=== PATIENT | female | born 1970 | race African-American/Black ===

== ENCOUNTER 2016-12-16 07:19 | Outpatient (CLI) | payer OTHER ==
[2016-03-28 12:39] VITALS: BP 163/100
[2016-12-16 08:07] LABS: BASOPHILS % 0.8 (0.0-1.5); EOSINOPHILS % 2.6 % (0.0-6.8); MEAN CORPUSCULAR HEMOGLOBIN 29.8 pg (28.0-34.0); MEAN CORPUSCULAR VOLUME 92.6 fl (80.0-100.0); MONOCYTES % 4.4 % (0.0-11.0); NEUTROPHILS # 6.1 # k/uL (1.4-7.7)
[2016-12-16 08:18] LABS: eGFR (African) > 60; eGFR (Non-African) > 60
--- NOTE | 2016-12-17 06:46 | Diagnostic Imaging Report ---
WOLF JUAREZ~ [facility] [address] [facility] [address] [address] ~ ~ ~ ~ Report Submission Date: Dec 16, 2016 7:55:24 AM CDT Patient ~ Study Name: ERICA TALBOT ~ Date: Dec 16, 2016 7:37:29 AM CDT ~ Modality Type: CR Gender: F ~ Description: CHEST : 70 ~ Institution: [facility] Physician: WOLF JUAREZ ~ ~ ~ ~ Examination: PA and lateral chest. History: Evaluate lung parekh. Findings: PA lateral chest demonstrate a normal cardiac and mediastinal silhouette. No focal infiltrate.~ No effusion.~ No blunting of the costophrenic margins.~ Osseous structures are appropriate for age. Impression: No acute process. ~ Electronically signed on Dec 16, 2016 7:55:24 AM CDT by: Mike SAEZ
== END 2016-12-16 07:20 ==
LOC: RAD 07:19
PROVIDERS: ATTEND Physician Assistant
DX: R06.02 Shortness of breath (principal); Z83.42 Family history of familial hypercholesterolemia
CPT/HCPCS: 36415; 71020; 80053; 80061; 83880; 85025

== ENCOUNTER 2016-12-21 09:30 | Outpatient (CLI) | payer OTHER ==
[2016-03-28 12:39] VITALS: BP 163/100
[2016-12-21] MEDS ORDERED: ALBUTEROL SULFATE 2.5 MG/3 ML AMPUL.NEB NEB ONE (09:50)
== END 2016-12-21 09:32 ==
LOC: RT 09:30
PROVIDERS: ATTEND Physician Assistant
DX: R06.02 Shortness of breath (principal); J45.909 Unspecified asthma, uncomplicated
CPT/HCPCS: 94060

== ENCOUNTER 2017-01-25 10:05 | Emergency (ER) | payer OTHER ==
[2017-01-25] MEDS ORDERED: IPRATROPIUM/ALBUTEROL SULFATE 3 ML AMPUL.NEB NEB ONE (10:06)
[2017-01-25] MEDS: IPRATROPIUM/ALBUTEROL SULFATE 3 ML AMPUL.NEB NEB ONE (10:21)
--- NOTE | 2017-01-25 10:22 | ED Physician Documentation ---
Dyspnea - HISTORIAN Historian: patient - HPI Stated Complaint: short of breath Chief Complaint: Dyspnea Additional Information: lost her nebulizer, was at clinic getting refiil prescription and decided she didn't want to wait for a treatment so she came to ER. Now breathing fine after duoneb treatment. Onset: minutes Duration: continues in ED, gone now Initiating Event: out of meds Severity: mild Exacerbated By: nothing Associated Symptoms: none Further Comments: no - ROS CONST: no problems EYES/ENT: none GI/: none NEURO/PSYCH: denies: headache MS/SKIN/LYMPH: none - PAST HX Lung Disease: asthma, COPD Cardiac Disease: CHF PE Risk Factors: hypertension Surgeries/Procedures: none Other History: none Allergies/Adverse Reactions: Allergies Allergy/AdvReac Type Severity Reaction Status Date / Time lisinopril Allergy Unknown Anaphylaxis Verified 01/25/17 10:18 Home Medications: Ambulatory Orders Medication Instructions Recorded Omeprazole 20 mg PO DAILY 05/12/15 amLODIPine BESYLATE [Norvasc] 10 mg PO DAILY 02/17/16 Cyclobenzaprine HCl [Flexeril] 10 mg PO HS #10 tablet 03/28/16 Naproxen [Naprosyn] 500 mg PO Q12H #20 tablet 03/28/16 Albuterol Ihaler 90 mcg IH 4 hours 12/15/16 Albuterol Sulfate 2.5 mg IH QID 12/15/16 Hydrochlorothiazide [Hydrodiuril] 12.5 mg PO DAILY u2 12/15/16 Ipratropium Garvin 0.2 mg IH QID 12/15/16 - SOCIAL HX Smoking History: cigarettes Alcohol Use: none Drug Use: none - FAMILY HX Family History: none - VITAL SIGNS Vital Signs: Vital Signs Temp Pulse Resp BP Pulse Ox 68 18 163/114 99 01/25/17 10:05 01/25/17 10:05 01/25/17 10:05 01/25/17 10:05 - REVIEWED ASSESSMENTS Nursing Assessment Reviewed: Yes Vitals Reviewed: Yes Progress - Results/Orders Results/Orders: no wheeze after duoneb ED Results Lab/Radiology - Orders Orders: ED Orders Category Date Time Status Ipratropium/Albuterol Sulfate [Duoneb] Med 01/25/17 10:06 Discontinued 3 ml NEB .STK-MED ONE Ipratropium/Albuterol Sulfate [Duoneb] Med 01/25/17 10:20 Once 3 ml NEB NOW ONE Dyspnea Physical Exam - EXAM General Appearance: no acute distress, alert EENT: eye inspection normal, ENT inspection normal, pharynx normal, no signs of dehydration Neck: nml inspection Respiratory: no resp. distress, no pain on inspiration, speaks full sentences, wheezes CVS: reg. rate & rhythm, no murmur Abdomen: non-tender Skin: color nml, no rash Extremities: non-tender Neuro/Psych: oriented x3 Discharge Clincal Impression: Asthma attack Referrals: Oliver Alvarez PA [Primary Care Provider] - 2 Days Home Medications: Ambulatory Orders Omeprazole 20 mg PO DAILY 05/12/15 amLODIPine BESYLATE [Norvasc] 10 mg PO DAILY 02/17/16 Cyclobenzaprine HCl [Flexeril] 10 mg PO HS #10 tablet 03/28/16 Naproxen [Naprosyn] 500 mg PO Q12H #20 tablet 03/28/16 Albuterol Ihaler 90 mcg IH 4 hours 12/15/16 Albuterol Sulfate 2.5 mg IH QID 12/15/16 Hydrochlorothiazide [Hydrodiuril] 12.5 mg PO DAILY u2 12/15/16 Ipratropium Garvin 0.2 mg IH QID 12/15/16 Condition: Good Disposition: 01 HOME, SELF-CARE Decision to Admit: NO Date of Decison to Admit: 01/25/17 Decision Time: 10:24
[2017-01-25 10:34] VITALS: BP 140/97
== END 2017-01-25 10:32 | disposition home or self-care (01) ==
LOC: ED 10:05
DX: J45.909 Unspecified asthma, uncomplicated (principal)
CPT/HCPCS: 99283

== ENCOUNTER 2017-02-26 13:43 | Outpatient (CLI) | payer OTHER ==
--- NOTE | 2017-02-26 15:46 | Diagnostic Imaging Report ---
WOLF JUAREZ [facility] [address] [facility] [address] [address] Report Submission Date: Feb 26, 2017 2:22:32 PM CDT Patient Study Name: ERICA TALBOT Date: Feb 26, 2017 1:44:54 PM CDT Modality Type: CR Gender: F Description: UPPER EXTREMITY : 70 Institution: [facility] Physician: WOLF JUAREZ Examination: Plain film wrist History: Wrist discomfort Comparison exams: None available Findings: 3 views the wrist demonstrate normal cortical margins. No fracture. No dislocation. Early degenerative changes 1st carpometacarpal articulation. No soft tissue abnormality. Impression: Wall the Early degenerative changes. No acute osseous abnormality Electronically signed on Feb 26, 2017 2:22:32 PM CDT by: Mike SAEZ
== END 2017-02-26 13:44 ==
LOC: RAD 13:43
PROVIDERS: ATTEND Physician Assistant
DX: M25.532 Pain in left wrist (principal)
CPT/HCPCS: 73110

== ENCOUNTER 2017-03-08 16:16 | Outpatient (CLI) | payer OTHER | END 2017-03-08 16:17 | LOC: LABRHC 16:16 | PROVIDERS: ATTEND Physician Assistant | DX: N39.0 Urinary tract infection, site not specified (principal) | CPT/HCPCS: 87086 ==

== ENCOUNTER 2017-03-11 12:32 | Outpatient (CLI) | payer OTHER ==
--- NOTE | 2017-03-11 14:26 | Diagnostic Imaging Report ---
WOLF JUAREZ [facility] [address] [facility].[address] [address] Report Submission Date: Mar 11, 2017 1:16:16 PM CDT Patient Study Name: ERICA TALBOT Date: Mar 11, 2017 12:52:35 PM CDT Modality Type: US Gender: F Description: UNILAT LTD STDY EXT VEINS : 70 Institution: [facility] Physician: WOLF JUAREZ Examination: Ultrasound vein History: Leg discomfort Findings: Sonographic evaluation of the left lower extremity venous system from the groin to the popliteal fossa inclusive. Normal compressibility. No luminal filling defect. Normal waveforms and response to augmentation. No popliteal region fluid collection. Impression: No evidence for deep venous thrombosis. Electronically signed on Mar 11, 2017 1:16:16 PM CDT by: Mike SAEZ
== END 2017-03-11 12:33 ==
LOC: RAD 12:32
PROVIDERS: ATTEND Physician Assistant
DX: M79.604 Pain in right leg (principal)
CPT/HCPCS: 93971

== ENCOUNTER 2017-10-13 10:36 | Outpatient (CLI) | payer OTHER ==
[2017-10-13 10:55] LABS: BASOPHILS % 0.4 (0.0-1.5); MEAN CORPUSCULAR HEMOGLOBIN 29.5 pg (28.0-34.0); MEAN CORPUSCULAR VOLUME 94.3 fl (80.0-100.0); MONOCYTES % 3.8 % (0.0-11.0); NEUTROPHILS # 6.1 # k/uL (1.4-7.7)
[2017-10-13 11:18] LABS: eGFR (African) > 60; eGFR (Non-African) > 60
== END 2017-10-13 10:38 ==
LOC: LAB 10:36
PROVIDERS: ATTEND Physician Assistant
DX: I10 Essential (primary) hypertension (principal); Z00.00 Encounter for general adult medical examination without abnormal findings
CPT/HCPCS: 36415; 80053; 80061; 85025

== ENCOUNTER 2017-11-09 10:16 | Emergency (ER) | payer OTHER ==
--- NOTE | 2017-11-09 10:51 | ED Physician Documentation ---
Abdominal Pain - HISTORIAN Historian: patient - HPI Stated Complaint: Abdominal cramping x2 days Chief Complaint: Abdominal Pain Additonal Information: 46 yo female who developed some abd cramping, nauseated and vomited 3 times, has had some diarrhea also. No fever or chills. Has had some bright red bleed in stools, does have some hemorrhoids. No one else ill at home. Onset: days ago (2 days) Duration: constant, waxing, waning Timing: still present Context: denies: out of country travel, bad food Severity: moderate Quality: cramping Associated Symptoms: nausea, vomiting, diarrhea, bloody stools (mild), loss of appetite. denies: fever, chills, coffee ground emesis, bloody emesis Exacerbated by: nothing Relieved by: nothing - ROS CONST: no problems GI/: other (hemorrhoids) CVS/RESP: none MS/SKIN/LYMPH: none - SOCIAL HX Smoking History: less than 1 pack/day (3-4) Alcohol Use: occasionally Drug Use: none - FAMILY HX Family History: no significant history - PAST HX Past History: none Ischemic Bowel Risk Factors: none Surgeries/Procedures: none Immunizations: referred to PCP Allergies/Adverse Reactions: Allergies Allergy/AdvReac Type Severity Reaction Status Date / Time lisinopril Allergy Unknown Anaphylaxis Verified 11/09/17 10:38 - VITAL SIGNS Vital Signs: Vital Signs Temp Pulse Resp BP Pulse Ox 98.3 F 81 16 171/107 99 11/09/17 10:16 11/09/17 10:16 11/09/17 10:16 11/09/17 10:16 11/09/17 10:16 - REVIEWED ASSESSMENTS Nursing Assessment Reviewed: Yes Vitals Reviewed: Yes Progress - Progress Progress: 11:56 Still complains of some abd cramping and bloating ED Results Lab/Radiology - Lab Results Lab Results: Lab Results 11/09/17 11/09/17 11/09/17 11:30 11:30 11:30 WBC 8.80 K/ul K/ul (4.00-12.00) RBC 4.52 M/ul M/ul (3.90-5.20) Hgb 13.4 g/dL g/dL (12.0-16.0) Hct 42.5 % % (34.5-46.5) MCV 93.9 fl fl (80.0-100.0) MCH 29.7 pg pg (28.0-34.0) MCHC 31.6 g/dL g/dL (30.0-36.0) RDW 13.8 % % (11.3-14.3) Plt Count 366 K/mm3 K/mm3 (130-400) Neut % (Auto) 68.5 % % (39.0-79.0) Lymph % (Auto) 24.5 % % (16.0-50.0) [place] % (Auto) 2.9 % % (0.0-11.0) Eos % (Auto) 2.2 % % (0.0-6.8) Baso % (Auto) 0.3 (0.0-1.5) Neut # (Auto) 6.0 # k/uL # k/uL (1.4-7.7) Lymph # (Auto) 2.2 # k/uL # k/uL (0.6-4.0) [place] # (Auto) 0.2 # k/uL # k/uL (0.0-0.9) Eos # (Auto) 0.2 # k/uL # k/uL (0.0-0.6) Baso # (Auto) 0.0 # k/uL # k/uL (0.0-0.5) Reactive Lymphs % 1.5 % % (0.0-5.0) Reactive Lymphs # 0.1 # k/uL # k/uL (0.0-0.8) Sodium 140 mmol/L mmol/L (136-145) Potassium 3.8 mmol/L mmol/L (3.5-5.1) Chloride 106 mmol/L mmol/L (98-107) Carbon Dioxide 25 mmol/L mmol/L (22-30) BUN 14 mg/dL mg/dL (7-17) Creatinine 1.00 mg/dL mg/dL (0.52-1.04) Estimated Creat Clear 120 Est GFR ( Amer) > 60 (60 - ) Est GFR (Non-Af Amer) > 60 (60 - ) Glucose 105 mg/dL mg/dL (74-106) Calcium 9.7 mg/dL mg/dL (8.4-10.2) Total Bilirubin 0.1 mg/dL L mg/dL (0.2-1.3) AST 18 U/L U/L (15-46) ALT 23 U/L U/L (13-69) Alkaline Phosphatase 82 U/L U/L (38-126) Total Protein 7.5 g/dL g/dL (6.3-8.2) Albumin 4.0 g/dL g/dL (3.5-5.0) Lipase 71 U/L U/L (23-300) - Orders Orders: ED Orders Category Date Time Status ABD SERIES PA CHEST [RAD] Stat Exams 11/09/[address] ABD & PELVIS W/ CON Stat Exams 11/09/17 Stop Req CBC/PLATELET/DIFF Routine Lab 11/09/17 11:30 Completed CMP Routine Lab 11/09/17 11:30 Completed LIPASE Stat Lab 11/09/17 11:30 Completed URINALYSIS Routine Lab 11/09/17 Ordered Abdominal Pain Physical Exam - Physical Exam General Appearance: alert, mild distress EENT: eye inspection normal, ENT inspection normal NECK: normal inspection, thyroid normal, supple. No: lymphadenopathy RESPIRATORY: no resp distress, chest non-tender, breath sounds normal. No: wheezes, rales, rhonchi CVS: reg rate & rhythm, heart sounds normal, equal pulses, no murmur ABDOMEN: soft, no organomegaly, normal bowel sounds, no distension, tenderness ( mild diffuse in all quadrants). No: rebound, guarding BACK: normal inspection, no CVA tenderness SKIN: warm/dry, normal color NEURO: oriented X3, mood/affect nml, cognition normal Vital Signs: Vital Signs Temp Pulse Resp BP Pulse Ox 98.3 F 81 16 171/107 99 11/09/17 10:16 11/09/17 10:16 11/09/17 10:16 11/09/17 10:16 11/09/17 10:16 Discharge Clincal Impression: Constipation Referrals: Oliver Alvarez PA [Primary Care Provider] - 2 Days Additional Instructions: Take some Milk of Magnesia, 2 tablespoons to see if that will help with constipation and cramping feeling. You need to have your blood pressure recheck. Make sure you take you medications as directed. If you continue to have proboems to see Chi Alvarez for possible CT scan that you refused to have done today. Condition: Stable Disposition: 01 HOME, SELF-CARE Decision to Admit: NO Date of Decison to Admit: 11/09/17 Decision Time: 12:39
[2017-11-09 11:32] LABS: BASOPHILS % 0.3 (0.0-1.5); EOSINOPHILS % 2.2 % (0.0-6.8); MEAN CORPUSCULAR HEMOGLOBIN 29.7 pg (28.0-34.0); MEAN CORPUSCULAR VOLUME 93.9 fl (80.0-100.0); MONOCYTES % 2.9 % (0.0-11.0)
[2017-11-09 11:47] LABS: eGFR (African) > 60; eGFR (Non-African) > 60
--- NOTE | 2017-11-09 13:09 | Diagnostic Imaging Report ---
GIANFRANCO DAHL [facility] [address] [facility].[address] [address] Report Submission Date: November 09, 2017 11:28:36 AM CDT Patient Study Name: ERICA TALBOT Date: November 09, 2017 11:01:00 AM CDT Modality Type: DX Gender: F Description: ABDOMEN : 70 Institution: [facility] Physician: GIANFRANCO DAHL Examination: Abdomen History: GENERALIZED ABDOMINAL PAIN/N/V X 2 DAYS (Hx) Findings: 3 views obtained of the chest and abdomen. No abnormal dilation of the large or small bowel. Air and stool throughout the large bowel. No suspicious calcification projecting over the renal fossa or the lower pelvic region. Pelvic phleboliths. Osseous structures are appropriate for age. Single view the chest without focal infiltrative process. No blunting of the costophrenic margins. Impression: Moderate large bowel stool. No obstruction. No parenchymal infiltrate/effusion. No suspicious calcifications by plain film sensitivity. Electronically signed on November 09, 2017 11:28:36 AM CDT by: Mike SAEZ
[2017-11-09 13:15] LABS: APPEARANCE,URINE CLOUDY (CLEAR); COLOR,URINE YELLOW (YELLOW)
[2017-11-09 13:16] LABS: OCCULT BLOOD,URINE 1+ (NEGATIVE); UROBILINOGEN URINE 0.2 Eu (0.2-1.0)
[2017-11-09 13:20] VITALS: BP 140/97
== END 2017-11-09 12:55 | disposition home or self-care (01) ==
LOC: ED 10:16
DX: K59.00 Constipation, unspecified (principal)
CPT/HCPCS: 74022; 80053; 81002; 83690; 85025; 87086; 87186; 99284

== ENCOUNTER 2017-11-23 15:22 | Outpatient (CLI) | payer OTHER ==
--- NOTE | 2017-11-23 18:57 | Diagnostic Imaging Report ---
WOLF JUAREZ [facility] [address] [facility].[address] [address] Report Submission Date: Nov 23, 2017 5:58:55 PM CDT Patient Study Name: ERICA TALBOT Date: Nov 23, 2017 3:37:17 PM CDT Modality Type: US Gender: F Description: : 70 Institution: [facility] Physician: WOLF JUAREZ Ultrasound lower extremity venous duplex History: Fell off the couch 3 weeks ago with swelling in the calf Duplex and color flow imaging was performed through the left lower extremity femoropopliteal venous system revealing normal compressibility and normal augmentation from the common femoral vein to the popliteal vein. The calf veins are not well visualized. Ultrasound for the area of pain at the lateral left calf reveals no abnormalities. Impression: No evidence for deep venous thrombosis. The calf veins are not well visualized. No abnormalities are identified in the area of pain at the left lateral calf. Electronically signed on Nov 23, 2017 5:58:55 PM CDT by: Yana SAEZ
== END 2017-11-23 15:23 ==
LOC: RAD 15:22
PROVIDERS: ATTEND Physician Assistant
DX: M79.605 Pain in left leg (principal)
CPT/HCPCS: 93971

== ENCOUNTER 2018-02-18 18:52 | Emergency (ER) | payer OTHER ==
--- NOTE | 2018-02-18 19:25 | ED Physician Documentation ---
General Adult - HISTORIAN Historian: patient - HPI Stated Complaint: doesn't feel well Chief Complaint: General Adult Additional Information: Scratching a lottery ticket after supper when she thought her throat was getting tight and it was hard to swallow. Occurred 30 minutes earlier. Says she feels better now, but wanted to know if she was getting sick or if her throat was about to close. Had a previous allergic reaction to lisinopril 9 years ago. Denies new foods or exposures this evening. She has had a bit of a LUU for two days and her voice is scratchy. Thinks all of her symptoms may be her allergies. No fever, no drooling. No benadryl or other treatment attempted. No other modifying factors or associated signs. - ROS CONST: no problems - PAST HX Past History: other (seasonal alergies) Allergies/Adverse Reactions: Allergies Allergy/AdvReac Type Severity Reaction Status Date / Time lisinopril Allergy Unknown Anaphylaxis Verified 02/18/18 19:07 - SOCIAL HX Smoking History: cigarettes - FAMILY HX Family History: No - VITAL SIGNS Vital Signs: Vital Signs Temp Pulse Resp BP Pulse Ox 140/97 11/09/17 13:18 - REVIEWED ASSESSMENTS Nursing Assessment Reviewed: Yes Vitals Reviewed: Yes General Adult Physical Exam - PHYSICAL EXAM GENERAL APPEARANCE: mild distress (anxious) EENT: eye inspection normal, ENT inspection normal, pharynx normal (hypertrophied cryptic tonsils), other (no pain with palpation facial sinus areas). No: pharyngeal erythema NECK: normal inspection, supple RESPIRATORY: no resp distress, breath sounds normal CVS: reg rate & rhythm, heart sounds normal, no murmur BACK: normal inspection SKIN: warm/dry, normal color EXTREMITIES: normal range of motion (gait and stance), no evidence of injury NEURO: CN's nml as tested, motor nml, sensation nml, cognition normal Discharge Clincal Impression: Seasonal allergies Referrals: Primary Doctor,No [Primary Care Provider] - 2 Days Condition: Good Disposition: 01 HOME, SELF-CARE Decision to Admit: NO Decision Time: 19:28
[2018-02-18] MEDS ORDERED: MORPHINE SULFATE 10 MG/ML CARTRIDGE IVP ONE (19:46)
[2018-02-18 20:20] VITALS: BP 179/122
== END 2018-02-18 19:25 | disposition home or self-care (01) ==
LOC: ED 18:52
DX: J30.2 Other seasonal allergic rhinitis (principal)
CPT/HCPCS: 99282

== ENCOUNTER 2018-03-03 15:06 | Outpatient (CLI) | payer OTHER | END 2018-03-03 15:07 | LOC: LAB 15:06 | PROVIDERS: ATTEND Family Medicine | DX: L65.9 Nonscarring hair loss, unspecified (principal) | CPT/HCPCS: 36415; 84443 ==

== ENCOUNTER 2018-04-04 15:27 | Outpatient (CLI) | payer OTHER | END 2018-04-04 15:30 | LOC: LAB 15:27 | PROVIDERS: ATTEND Family Medicine | DX: Z11.3 Encounter for screening for infections with a predominantly sexual mode of transmission (principal) | CPT/HCPCS: 36415; 86703; 86803; 87491; 87591 ==

== ENCOUNTER 2018-04-04 16:15 | Outpatient (CLI) | payer OTHER | END 2018-04-04 16:16 | LOC: LABRHC 16:15 | PROVIDERS: ATTEND Family Medicine | DX: Z53.9 Procedure and treatment not carried out, unspecified reason (principal) ==

== ENCOUNTER 2018-10-03 11:44 | Emergency (ER) | payer OTHER ==
--- NOTE | 2018-10-03 12:00 | ED Physician Documentation ---
General Adult - HPI Stated Complaint: dental pain Chief Complaint: General Adult Additional Information: Patient presents to ED with a 2 day history of left lower dental pain. She states she has been taking Ibuprofen 400mg every 3 hours for her dental pain. Today she began to have epigastric pain. Patient admits to GERD and take Prilosec, however, has not been taking her medication due to her dental pain. She may have had a bowel movement that was dark red in nature. Onset: days ago (2) Timing: still present Severity: mild - ROS CONST: no problems EYES/ENT: none CVS/RESP: cough GI/: denies: vomiting, nausea MS/SKIN/LYMPH: none NEURO/PSYCH: denies: headache - PAST HX Past History: none Other History: none Surgeries/Procedures: none Allergies/Adverse Reactions: Allergies Allergy/AdvReac Type Severity Reaction Status Date / Time lisinopril Allergy Unknown Anaphylaxis Verified 02/18/18 19:07 Home Medications: Ambulatory Orders Medication Instructions Recorded Penicillin V Potassium [Pen V K] 500 mg PO TID #30 tablet 10/03/18 - SOCIAL HX Smoking History: non-smoker Alcohol Use: none Drug Use: none - FAMILY HX Family History: No - VITAL SIGNS Vital Signs: Vital Signs Temp Pulse Resp BP Pulse Ox 179/122 02/18/18 19:22 - REVIEWED ASSESSMENTS Nursing Assessment Reviewed: Yes Vitals Reviewed: Yes General Adult Physical Exam - PHYSICAL EXAM GENERAL APPEARANCE: no distress EENT: ROSE NECK: supple RESPIRATORY: no resp distress, chest non-tender, breath sounds normal CVS: reg rate & rhythm, heart sounds normal ABDOMEN: soft, tenderness (epigastric) BACK: no CVA tenderness SKIN: warm/dry EXTREMITIES: non-tender NEURO: oriented X3, motor nml Discharge Clincal Impression: Dental abscess UTI (urinary tract infection) Qualifiers: Urinary tract infection type: acute cystitis Hematuria presence: without hematuria Qualified Code(s): N30.00 - Acute cystitis without hematuria Prescriptions: Penicillin V Potassium [Pen V K] 500 mg PO TID #30 tablet Referrals: Meron Ghotra MD [Primary Care Provider] - 2 Days Additional Instructions: 1. Stop taking Ibuprofen. Use tylenol instead 2. Drink plenty of fluids to maintain proper hydration. Avoid Caffeine and alcohol 3. Take antibiotics until gone 4. Follow up with dentist as soon as possible 5. Follow up with PCP within 1 week 6. Return to ER for new or worsening symptoms Condition: Stable Decision to Admit: NO Date of Decison to Admit: 10/03/18 Decision Time: 13:16
[2018-10-03 12:46] LABS: APPEARANCE,URINE CLOUDY (CLEAR); COLOR,URINE YELLOW (YELLOW); OCCULT BLOOD,URINE 2+ (NEGATIVE); UROBILINOGEN URINE 0.2 Eu (0.2-1.0)
[2018-10-03 12:53] LABS: EOSINOPHILS % 1.4 % (0.0-6.8); MONOCYTES % 5.4 % (0.0-11.0); NEUTROPHILS # 8.6 # k/uL (1.4-7.7)
[2018-10-03 13:06] LABS: eGFR (Non-African) > 60
[2018-10-03 13:35] VITALS: BP 150/120
== END 2018-10-03 13:31 ==
LOC: ED 11:44
DX: K04.7 Periapical abscess without sinus (principal); N30.00 Acute cystitis without hematuria
CPT/HCPCS: 36415; 80053; 81002; 83690; 85025; 87086; 99283

== ENCOUNTER 2018-10-11 13:44 | Outpatient (CLI) | payer OTHER ==
[2018-10-11 14:22] LABS: MEAN CORPUSCULAR HEMOGLOBIN 29.6 pg (28.0-34.0)
[2018-10-11 14:30] LABS: eGFR (Non-African) > 60
== END 2018-10-11 13:46 ==
LOC: LAB 13:44
PROVIDERS: ATTEND Family Medicine
DX: I10 Essential (primary) hypertension (principal); K92.1 Melena
CPT/HCPCS: 36415; 80048; 85027

== ENCOUNTER 2019-03-08 14:31 | Outpatient (CLI) | payer OTHER ==
[2018-10-18 10:50] VITALS: BP 175/110
[2019-03-08 15:06] LABS: BASOPHILS % 0.7 % (0.0-1.5); NEUTROPHILS # 6.5 # k/uL (1.4-7.7); SEGMENTED NEUTROPHILS % 64 % (39-79)
[2019-03-08 16:06] LABS: eGFR (Non-African) > 60
[2019-03-08 16:07] LABS: A1C 5.6 % (<5.7)
== END 2019-03-08 14:33 ==
LOC: LAB 14:31
PROVIDERS: ATTEND Family Medicine
DX: R20.0 Anesthesia of skin (principal); R73.9 Hyperglycemia, unspecified
CPT/HCPCS: 36415; 80053; 82607; 82746; 83036; 85025; 88148; G0143

== ENCOUNTER 2019-05-27 16:24 | Emergency (ER) | payer OTHER ==
[2019-05-27] MEDS ORDERED: ORPHENADRINE CITRATE 60 MG/2 ML ML IM ONE (16:43)
[2019-05-27] MEDS ORDERED: KETOROLAC TROMETHAMINE 60 MG/2 ML VIAL IM ONE (16:43)
--- NOTE | 2019-05-27 16:43 | ED Physician Documentation ---
Headache - HISTORIAN Historian: patient - HPI Stated Complaint: c/o headache and dizziness Chief Complaint: Headache Additional Information: Patient presents to ED with a 12 hour history of left occipital headache with dizziness. Patient states it started last night, however, went away when she went to bed. This morning is began again. She normally does not have headache. Patient was worried she was having a stroke so she came to the ER. She has HTN, presenting blood pressure 179/105. Patient also complains of some neck and shoulder pain. Onset: hours (12) Timing: intermittent episodes Exposure To: none Severity: moderate Quality: sharp Associated Symptoms: light-headedness. denies: problems with vision, sensitivity to light, nausea, vomiting Preceding Symptoms: denies: visual disturbance - ROS NEURO/PSYCH: denies: confusion, anxiety EYES/ENT: denies: difficulty swallowing CVS/RESP: denies: chest pain, shortness of breath GI/: denies: abdominal pain MS/SKIN/LYMPH: denies: muscle aches - PAST HX Medical History: CVA, hypertension Surgical History: noncontributory Allergies/Adverse Reactions: Allergies Allergy/AdvReac Type Severity Reaction Status Date / Time lisinopril Allergy Unknown Anaphylaxis Verified 05/27/19 16:41 - SOCIAL HX Smoking History: cigarettes, less than 1 pack/day Alcohol Use: none Drug Use: none - Family HX Family History: none - VITAL SIGNS Vital Signs: Vital Signs Temp Pulse Resp BP Pulse Ox 97.8 F 88 18 179/100 98 05/27/19 16:36 05/27/19 16:36 05/27/19 16:36 05/27/19 16:36 05/27/19 16:36 - REVIEWED ASSESSMENTS Nursing Assessment Reviewed: Yes Vitals Reviewed: Yes ED Results Lab/Radiology - Radiology Radiology Impressions: Report Submission Date: May 27, 2019 5:22:15 PM INTER COM SERVICER Patient Study Name: ERICA DIAZ Date: May 27, 2019 4:45:00 PM INTER COM SERVICER Modality Type: CT\SR Gender: F Description: CT BRAIN W/O CONTRAST : 70 Institution: [facility] Physician: PAVITHRA BRODY CT brain noncontrast. Date of study: May 27, 2019 CLINICAL HISTORY: Order states: headache Pt states: LUU w/hx of HTN, dizziness, LUU to back lt side of head, no trauma, starting last night. Prior CT Head w/o done 06/10/2016 (Hx) / ITS.REASON headache Note time : 05/27/2019 5:15:15 PM User : Lucy Saeed Order states: headache Pt states: LUU w/hx of HTN, dizziness, LUU to back lt side of head, no trauma, starting last night. Prior CT Head w/o done 06/10/2016 (DICOM Hx) TECHNIQUE: 3 mm contiguous axial images of the brain, noncontrast with sagittal and coronal reconstructions. FINDINGS: There is no evidence of intracranial mass effect, hemorrhage, or acute infarct. The lateral ventricles are symmetrical and the 4th ventricle is midline without shift. No acute brain parenchymal changes or extra-axial fluid collections are identified. The posterior fossa contents are within normal limits. The calvarium is intact. The visualized sinuses and mastoid air cells are clear. IMPRESSION: No acute intracranial process. Electronically signed on May 27, 2019 5:22:15 PM INTER COM SERVICER by: Andre Willett - Orders Orders: ED Orders Category Date Time Status CT BRAIN W/O CONTRAST Stat Exams 05/27/19 Completed Ketorolac Tromethamine [Toradol] Med 05/27/19 16:43 Discontinued 60 mg IM NOW ONE Orphenadrine Citrate [Norflex] Med 05/27/19 16:43 Discontinued 60 mg IM NOW ONE hydrALAZINE HCL [Apresoline] Med 05/27/19 17:05 Discontinued 25 mg PO ONCE ONE Headache Physical Exam - EXAM General Appearance: no acute distress, alert EENT: eyes nml inspection, PERRL Neck: supple Respiratory: no resp distress, chest non-tender, breath sounds normal CVS: reg. rate & rhythm, heart sounds nml Abdomen: non-tender, nml bowel sounds Skin: color nml, no rash Extremitites: non-tender, normal range of motion, no edema - NEURO/PSYCH Higher Functions: alert, oriented x3, nml speech, mood/affect nml Cranial: nml as tested, no evidence of acute CVA Cerebellar: nml as tested Sensorimotor: motor nml, sensation nml Discharge Clincal Impression: Accelerated essential hypertension Headache Qualifiers: Headache type: other headache syndrome Qualified Code(s): G44.89 - Other headache syndrome Referrals: Meron Ghotra MD [Primary Care Provider] - 2 Days Additional Instructions: 1. Keep blood pressure log. Measure blood pressure twice a day. Once in the morning, once in the evening. Write the readings down. 2. Tylenol 650mg every 4 hours as needed for pain. Norflex every 12 hours as needed for muscle tension 3. Resume home medications including Amlodipine 3. Follow up with PCP within 1 week. Take your blood pressure log with you to discuss. 4. Return to ER for new or worsening symptoms Condition: Stable Disposition: 01 HOME, SELF-CARE Decision to Admit: NO Date of Decison to Admit: 05/27/19 Decision Time: 18:09
[2019-05-27] MEDS ORDERED: hydrALAZINE HCL 25 MG TABLET PO ONE (17:05)
--- NOTE | 2019-05-27 17:26 | Diagnostic Imaging Report ---
PATIENT MR#: [id number] PATIENT PATIENT NAME: ERICA Mejia DATE OF : 1970 REFERRING PHYSICIAN: Mirella Jacobs EXAM DATE: 05/27/2019 ACCESSION NUMBER: [id number] EXAM DESCRIPTION: CT BRAIN W/O CONTRAST CT brain noncontrast. Date of study: May 27, 2019 CLINICAL HISTORY: Order states: headache Pt states: LUU w/hx of HTN, dizziness, LUU to back lt side of head, no trauma, Note time : 05/27/2019 5:15:15 PM User : Lucy Saeed Order states: headache Pt states: LUU w/hx of HTN, dizziness, LUU to back lt side of head, no trauma, s tarting last night. Prior CT Head w/o done 06/10/2016 (DICOM Hx) TECHNIQUE: 3 mm contiguous axial images of the brain, noncontrast with sagittal and coronal reconstructions. FINDINGS: There is no evidence of intracranial mass effect, hemorrhage, or acute infarct. The lateral ventricle s are symmetrical and the 4th ventricle is midline without shift. No acute brain parenchymal changes or extra-axial flu id collections are identified. The posterior fossa contents are within normal limits. The calvarium is intact. The visualized sinuses and mastoid air cells are clear. IMPRESSION: No acute intracranial process. Read by: Dr. Andre Willett Transcribed by: Transcribed Date: Electronically signed by: Dr. Andre Willett Date signed: 05/27/2019 5:25:51 PM
[2019-05-27 18:43] VITALS: BP 165/95
== END 2019-05-27 18:19 | disposition home or self-care (01) ==
LOC: ED 16:24
DX: I10 Essential (primary) hypertension (principal); G44.89 Other headache syndrome
CPT/HCPCS: 70450; 96372; 99282; 99284; J1885; J2360